=== PATIENT | female | born 1945 | race Caucasian/White ===

== ENCOUNTER 2021-12-31 18:36 | Inpatient (IN) | payer MEDICARE, MEDICAID ==
[2021-12-31] MEDS ORDERED: Magnesium 2 GM/50 ML BAG (IN WATER) ONE (18:54)
[2021-12-31] MEDS ORDERED: methylPREDNISolone Sod Succ/PF 125 MG/2 ML VIAL ONE (18:55)
[2021-12-31 19:24] LABS: #Lymphocytes 0.6 thou/uL (1.20-3.40); #Neutrophils 7.4 thou/uL (1.40-6.50); %Basophils 0.4 % (0.0-1.0); %Eosinophils 0.1 % (0.0-10.0); %Lymphocytes 6.9 % (21.0-51.0); %Monocytes 11.2 % (0.0-10.0); %Neutrophils 81.5 % (42.0-75.0); Mean Corpuscular HGB CONC 33.3 g/dL (32.0-36.0); Mean Corpuscular Hemoglobin 31.8 pg (27.0-31.0); Mean Corpuscular Volume 95.5 fL (78.0-98.0); Mean Platelet Volume 7.8 fL (7.4-10.4); Platelet Count 246 thou/uL (130-400); RBC Distribution Width 11.9 % (11.5-14.5); Red Blood Cell (RBC) Count 4.39 mill/uL (4.20-5.40); White Blood Cell (WBC) Count 9.1 thou/uL (4.8-10.8)
[2021-12-31 19:46] LABS: ALT (SGPT) 14 U/L (8-55); AST (SGOT) 23 U/L (5-34); Albumin 3.5 g/dL (3.4-4.8); Alkaline Phosphatase 31 U/L (40-110); Anion Gap 20 mmol/L (10-20); BUN (Urea Nitrogen) 72 mg/dL (9.8-20.1); Bilirubin, Total 1.1 mg/dL (0.2-1.2); CK (CPK) 92 U/L (29-168); Calc. Creatinine Clearance 0 mL/min (70-130); Calcium 8.7 mg/dL (7.8-10.44); Carbon Dioxide 21 mmol/L (23-31); Chloride 94 mmol/L (98-107); Glucose 159 mg/dL (83-110); Lipase 36 U/L (8-78); Magnesium 3.2 mg/dL (1.6-2.6); Potassium 3.2 mmol/L (3.5-5.1); Protein, Total 6.5 g/dL (5.8-8.1); Sodium 132 mmol/L (136-145)
[2021-12-31] MEDS ORDERED: cefTRIAXone\\ROCEPHIN 1 GM VIAL ONE (20:12)
[2021-12-31 20:16] LABS: Bilirubin Negative (Negative); Blood, Urine Negative (Negative); Clarity Turbid (Clear); Glucose, Urine (Dipstick) Normal (Negative); Ketone, Urine Negative (Negative); Leukocyte Negative Leu/uL (Negative); Nitrite Negative (Negative); Protein, Urine (Dipstick) 10 mg/dL (Neg-Trace); Specific Gravity, Urine 1.017 (1.002-1.036); Urobilinogen Normal mg/dL (Less than 2)
[2021-12-31 20:25] LABS: Amphetamine Not Detected (NotDetected); Barbiturates Screen Not Detected (NotDetected); Benzodiazepine Screen Not Detected (NotDetected); Cocaine Metabolite Screen Not Detected (NotDetected); Methadone Not Detected (NotDetected); Methamphetamine Not Detected (NotDetected); Opiate Screen Not Detected (NotDetected); Oxycodone Screen Not Detected (NotDetected); Phencyclidine (PCP) Not Detected (NotDetected); THC/Cannabinoid Screen Not Detected (NotDetected); Tricyclic Screen Not Detected (NotDetected)
[2021-12-31] MEDS ORDERED: Ondansetron ODT 4 MG TAB PO PRN (22:02)
[2021-12-31] MEDS ORDERED: Acetaminophen 500 MG TAB PO PRN (22:02)
[2021-12-31] MEDS ORDERED: Ondansetron PF 4 MG/2 ML Vial IVP PRN (22:02)
[2021-12-31 22:16] LABS: Lactic Acid 2.4 mmol/L (0.5-2.2)
[2022-01-01] MEDS: Sodium Chloride 0.9% 1,000 ML IV SCH ×3 (01:56→18:14)
[2022-01-01 02:34] VITALS: BMI 21.2
[2022-01-01 03:54] LABS: SARS-CoV-2 NAA Rapid Test Not Detected (NotDetected)
[2022-01-01 05:59] LABS: #Lymphocytes 0.5 thou/uL (1.20-3.40); #Monocytes 0.2 thou/uL (0.11-0.59); #Neutrophils 5.2 thou/uL (1.40-6.50); %Eosinophils 0.3 % (0.0-10.0); %Lymphocytes 8.2 % (21.0-51.0); %Monocytes 3.5 % (0.0-10.0); %Neutrophils 88.1 % (42.0-75.0); Hemoglobin 12.7 g/dL (12.0-16.0); Mean Corpuscular HGB CONC 32.4 g/dL (32.0-36.0); Mean Corpuscular Hemoglobin 33.1 pg (27.0-31.0); Mean Platelet Volume 8.5 fL (7.4-10.4); Platelet Count 205 thou/uL (130-400); RBC Distribution Width 12.2 % (11.5-14.5); Red Blood Cell (RBC) Count 3.83 mill/uL (4.20-5.40)
[2022-01-01 06:49] LABS: Chloride 102 mmol/L (98-107); Potassium 3.4 mmol/L (3.5-5.1); Sodium 135 mmol/L (136-145)
[2022-01-01 06:50] LABS: ALT (SGPT) 12 U/L (8-55); AST (SGOT) 25 U/L (5-34); Albumin 2.8 g/dL (3.4-4.8); Alkaline Phosphatase 41 U/L (40-110); Anion Gap 16 mmol/L (10-20); BUN (Urea Nitrogen) 62 mg/dL (9.8-20.1); Bilirubin, Total 0.3 mg/dL (0.2-1.2); Calc. Creatinine Clearance 21 mL/min (70-130); Calcium 8.1 mg/dL (7.8-10.44); Carbon Dioxide 20 mmol/L (23-31); Globulin 2.9 g/dL (2.4-3.5); Glucose 199 mg/dL (83-110); Phosphorus 2.7 mg/dL (2.3-4.7); Protein, Total 5.7 g/dL (5.8-8.1)
[2022-01-01] MEDS: Famotidine 20 MG TAB PO SCH (08:10)
[2022-01-01] MEDS: Budesonide 0.5 MG/2 ML NEB NEB SCH (19:22)
[2022-01-01] MEDS: methylPREDNISolone Sod Succ 40 MG VIAL IVP SCH (21:51)
[2022-01-02] MEDS: methylPREDNISolone Sod Succ 40 MG VIAL IVP SCH (06:20)
[2022-01-02] MEDS: Sodium Chloride 0.9% 1,000 ML IV SCH ×2 (06:30→20:47)
[2022-01-02] MEDS: Budesonide 0.5 MG/2 ML NEB NEB SCH ×2 (06:42→19:05)
[2022-01-02 09:20] LABS: #Lymphocytes 0.3 thou/uL (1.20-3.40); #Monocytes 0.1 thou/uL (0.11-0.59); #Neutrophils 7.9 thou/uL (1.40-6.50); %Basophils 0.1 % (0.0-1.0); %Eosinophils 0.1 % (0.0-10.0); %Monocytes 1.7 % (0.0-10.0); Hemoglobin 11.5 g/dL (12.0-16.0); Mean Corpuscular HGB CONC 33.1 g/dL (32.0-36.0); Mean Corpuscular Volume 99.6 fL (78.0-98.0); Mean Platelet Volume 8.6 fL (7.4-10.4); Platelet Count 189 thou/uL (130-400); RBC Distribution Width 12.1 % (11.5-14.5); Red Blood Cell (RBC) Count 3.49 mill/uL (4.20-5.40); White Blood Cell (WBC) Count 8.4 thou/uL (4.8-10.8)
[2022-01-02 09:29] LABS: Anion Gap 16 mmol/L (10-20); BUN (Urea Nitrogen) 38 mg/dL (9.8-20.1); Calc. Creatinine Clearance 29 mL/min (70-130); Carbon Dioxide 22 mmol/L (23-31); Chloride 108 mmol/L (98-107); Glucose 208 mg/dL (83-110); Potassium 3.6 mmol/L (3.5-5.1); Sodium 142 mmol/L (136-145)
[2022-01-02] MEDS: Famotidine 20 MG TAB PO SCH (09:48)
[2022-01-02] MEDS ORDERED: GUAIFENESIN SF SOLN 200 MG/10 ML UDCUP PO PRN (13:29)
[2022-01-02] MEDS ORDERED: traZODone HCl 50 MG TAB PO PRN (13:29)
[2022-01-02] MEDS: Atorvastatin Calcium 20 MG TAB PO SCH (20:52)
[2022-01-02] MEDS: Heparin 5,000 UNITS/ML VIAL SC SCH (20:52)
[2022-01-03] MEDS: Sodium Chloride 0.9% 1,000 ML IV SCH (03:18)
[2022-01-03 05:50] LABS: #Eosinphils 0.1 thou/uL (0.0-0.7); #Monocytes 0.9 thou/uL (0.11-0.59); #Neutrophils 8.1 thou/uL (1.40-6.50); %Basophils 0.3 % (0.0-1.0); %Eosinophils 0.6 % (0.0-10.0); %Lymphocytes 17.7 % (21.0-51.0); %Monocytes 8.2 % (0.0-10.0); %Neutrophils 73.3 % (42.0-75.0); Hemoglobin 11.3 g/dL (12.0-16.0); Mean Corpuscular HGB CONC 32.4 g/dL (32.0-36.0); Mean Corpuscular Hemoglobin 32.5 pg (27.0-31.0); Mean Platelet Volume 8.4 fL (7.4-10.4); Platelet Count 194 thou/uL (130-400); RBC Distribution Width 12.4 % (11.5-14.5)
[2022-01-03 06:10] LABS: Anion Gap 13 mmol/L (10-20); BUN (Urea Nitrogen) 27 mg/dL (9.8-20.1); Calc. Creatinine Clearance 36 mL/min (70-130); Calcium 8.2 mg/dL (7.8-10.44); Carbon Dioxide 24 mmol/L (23-31); Glucose 95 mg/dL (83-110); Potassium 3.8 mmol/L (3.5-5.1); Sodium 145 mmol/L (136-145)
[2022-01-03 06:18] LABS: Chloride 112 mmol/L (98-107)
[2022-01-03] MEDS: Budesonide 0.5 MG/2 ML NEB NEB SCH ×2 (06:30→19:06)
[2022-01-03] MEDS: Losartan 25 MG TAB PO SCH (09:05)
[2022-01-03] MEDS: Famotidine 20 MG TAB PO SCH (09:06)
[2022-01-03] MEDS: Hydrochlorothiazide 25 MG TAB PO SCH (09:06)
[2022-01-03] MEDS: methylPREDNISolone Sod Succ 40 MG VIAL IVP SCH (09:06)
[2022-01-03] MEDS: Heparin 5,000 UNITS/ML VIAL SC SCH ×2 (09:06→21:53)
[2022-01-03] MEDS ORDERED: Lorazepam 0.5 MG TAB PO PRN (15:31)
[2022-01-03] MEDS: guaiFENesin ER 600 MG TAB PO SCH (21:53)
[2022-01-03] MEDS: Benzonatate 100 MG CAP PO SCH (21:53)
[2022-01-03] MEDS: Atorvastatin Calcium 20 MG TAB PO SCH (21:53)
[2022-01-04] MEDS: Budesonide 0.5 MG/2 ML NEB NEB SCH ×2 (07:15→18:22)
[2022-01-04] MEDS: Famotidine 20 MG TAB PO SCH (10:25)
[2022-01-04] MEDS: Benzonatate 100 MG CAP PO SCH ×3 (10:25→23:41)
[2022-01-04] MEDS: Heparin 5,000 UNITS/ML VIAL SC SCH ×2 (10:26→20:07)
[2022-01-04] MEDS: Hydrochlorothiazide 25 MG TAB PO SCH (10:26)
[2022-01-04] MEDS: guaiFENesin ER 600 MG TAB PO SCH ×2 (10:26→20:16)
[2022-01-04] MEDS: Losartan 25 MG TAB PO SCH (10:26)
[2022-01-04] MEDS: methylPREDNISolone Sod Succ 40 MG VIAL IVP SCH (10:27)
[2022-01-04 16:23] LABS: #Eosinphils 0.2 thou/uL (0.0-0.7); #Lymphocytes 1.4 thou/uL (1.20-3.40); #Monocytes 0.6 thou/uL (0.11-0.59); #Neutrophils 4.9 thou/uL (1.40-6.50); %Basophils 0.3 % (0.0-1.0); %Eosinophils 2.5 % (0.0-10.0); %Lymphocytes 19.5 % (21.0-51.0); %Monocytes 8.6 % (0.0-10.0); %Neutrophils 69.1 % (42.0-75.0); Hemoglobin 12.2 g/dL (12.0-16.0); Mean Corpuscular HGB CONC 32.2 g/dL (32.0-36.0); Mean Corpuscular Hemoglobin 32.1 pg (27.0-31.0); Mean Corpuscular Volume 99.6 fL (78.0-98.0); Mean Platelet Volume 8.2 fL (7.4-10.4); Platelet Count 173 thou/uL (130-400); RBC Distribution Width 12.3 % (11.5-14.5); Red Blood Cell (RBC) Count 3.81 mill/uL (4.20-5.40); White Blood Cell (WBC) Count 7.1 thou/uL (4.8-10.8)
[2022-01-04 17:01] LABS: Anion Gap 12 mmol/L (10-20); BUN (Urea Nitrogen) 19 mg/dL (9.8-20.1); Calc. Creatinine Clearance 41 mL/min (70-130); Carbon Dioxide 26 mmol/L (23-31); Chloride 104 mmol/L (98-107); Glucose 107 mg/dL (83-110); Potassium 3.2 mmol/L (3.5-5.1); Sodium 139 mmol/L (136-145)
[2022-01-04] MEDS ORDERED: LORAZEPAM PO PRN (17:10)
[2022-01-04] MEDS: SIMVASTATIN PO SCH (20:08)
[2022-01-04] MEDS ORDERED: guaiFENesin ER 600 MG TAB ONE (20:11)
[2022-01-04] MEDS ORDERED: Benzonatate 100 MG CAP ONE (20:11)
[2022-01-05] MEDS: Budesonide 0.5 MG/2 ML NEB NEB SCH ×2 (07:39→19:10)
[2022-01-05] MEDS: PREMARIN PO SCH (09:36)
[2022-01-05] MEDS: LOSARTAN PO SCH (09:37)
[2022-01-05] MEDS: HYDROCHLOROTHIAZIDE PO SCH (09:39)
[2022-01-05] MEDS: Benzonatate 100 MG CAP PO SCH ×3 (09:44→20:17)
[2022-01-05] MEDS: guaiFENesin ER 600 MG TAB PO SCH ×2 (09:44→20:16)
[2022-01-05] MEDS: Famotidine 20 MG TAB PO SCH (09:45)
[2022-01-05] MEDS: methylPREDNISolone Sod Succ 40 MG VIAL IVP SCH (09:45)
[2022-01-05] MEDS: Heparin 5,000 UNITS/ML VIAL SC SCH ×2 (09:45→20:17)
[2022-01-05] MEDS ORDERED: Artificial Tear Sol 15 ML BOT EA EYE PRN (11:17)
[2022-01-05] MEDS ORDERED: Moisturizing Cream (Eucerin) 113 GM JAR TOP PRN (11:17)
[2022-01-05] MEDS ORDERED: Calcium Carbonate 500 MG ChewTAB PO PRN (11:17)
[2022-01-05] MEDS ORDERED: Cepastat Lozenges 1 LOZ PO PRN (11:17)
[2022-01-05] MEDS ORDERED: hydrALAZINE 20 MG/ML VIAL SLOW IVP PRN (11:17)
[2022-01-05] MEDS ORDERED: Loratadine 10 MG TAB PO PRN (11:17)
[2022-01-05] MEDS ORDERED: Loperamide HCl 2 MG CAP PO PRN (11:17)
[2022-01-05] MEDS ORDERED: Senokot S 8.6-50 MG TAB PO PRN (11:17)
[2022-01-05] MEDS ORDERED: Acetaminophen 500 MG TAB PO PRN (11:18)
[2022-01-05] MEDS: SIMVASTATIN PO SCH (20:17)
[2022-01-06] MEDS: Budesonide 0.5 MG/2 ML NEB NEB SCH ×2 (06:57→18:30)
[2022-01-06] MEDS: guaiFENesin ER 600 MG TAB PO SCH ×2 (09:23→21:13)
[2022-01-06] MEDS: Famotidine 20 MG TAB PO SCH (09:23)
[2022-01-06] MEDS: Benzonatate 100 MG CAP PO SCH ×3 (09:23→21:13)
[2022-01-06] MEDS: HYDROCHLOROTHIAZIDE PO SCH (09:26)
[2022-01-06] MEDS: PREMARIN PO SCH (09:26)
[2022-01-06] MEDS: LOSARTAN PO SCH (09:27)
[2022-01-06] MEDS: Heparin 5,000 UNITS/ML VIAL SC SCH ×2 (16:12→21:10)
[2022-01-06] MEDS: SIMVASTATIN PO SCH (21:10)
[2022-01-07 05:48] LABS: #Eosinphils 0.3 thou/uL (0.0-0.7); #Lymphocytes 2.1 thou/uL (1.20-3.40); #Monocytes 0.8 thou/uL (0.11-0.59); #Neutrophils 5.3 thou/uL (1.40-6.50); %Basophils 0.4 % (0.0-1.0); %Eosinophils 3.1 % (0.0-10.0); %Monocytes 9.4 % (0.0-10.0); %Neutrophils 62.1 % (42.0-75.0); Hemoglobin 12.1 g/dL (12.0-16.0); Mean Corpuscular HGB CONC 32.6 g/dL (32.0-36.0); Mean Corpuscular Hemoglobin 32.7 pg (27.0-31.0); Mean Platelet Volume 8.3 fL (7.4-10.4); Platelet Count 177 thou/uL (130-400); RBC Distribution Width 12.5 % (11.5-14.5); Red Blood Cell (RBC) Count 3.69 mill/uL (4.20-5.40); White Blood Cell (WBC) Count 8.5 thou/uL (4.8-10.8)
[2022-01-07 06:19] LABS: Anion Gap 12 mmol/L (10-20); BUN (Urea Nitrogen) 19 mg/dL (9.8-20.1); Calc. Creatinine Clearance 39 mL/min (70-130); Calcium 9.3 mg/dL (7.8-10.44); Carbon Dioxide 31 mmol/L (23-31); Chloride 101 mmol/L (98-107); Glucose 107 mg/dL (83-110); Magnesium 1.6 mg/dL (1.6-2.6); Phosphorus 3.1 mg/dL (2.3-4.7); Potassium 3.7 mmol/L (3.5-5.1); Sodium 140 mmol/L (136-145)
[2022-01-07] MEDS: Budesonide 0.5 MG/2 ML NEB NEB SCH (07:36)
[2022-01-07] MEDS: Famotidine 20 MG TAB PO SCH (09:14)
[2022-01-07] MEDS: guaiFENesin ER 600 MG TAB PO SCH (09:14)
[2022-01-07] MEDS: Benzonatate 100 MG CAP PO SCH ×2 (09:14→15:33)
[2022-01-07] MEDS: PREMARIN PO SCH (09:15)
[2022-01-07] MEDS: HYDROCHLOROTHIAZIDE PO SCH (09:16)
[2022-01-07] MEDS: LOSARTAN PO SCH (09:16)
[2022-01-07] MEDS: Heparin 5,000 UNITS/ML VIAL SC SCH (09:18)
[2022-01-07 17:11] VITALS: BP 115/83; TEMP 96.3
== END 2022-01-07 18:20 | disposition home or self-care (01) | DRG 922 ==
LOC: ERS 18:36 → SURG B 20:34
PROVIDERS: ADMIT Internal Medicine; ATTEND Internal Medicine
DX: T67.5XXA Heat exhaustion, unspecified, initial encounter (principal); G93.41 Metabolic encephalopathy; J96.01 Acute respiratory failure with hypoxia; J44.1 Chronic obstructive pulmonary disease with (acute) exacerbation; N17.9 Acute kidney failure, unspecified; Z20.822 Contact with and (suspected) exposure to COVID-19; E86.0 Dehydration; E87.6 Hypokalemia; F17.210 Nicotine dependence, cigarettes, uncomplicated; I10 Essential (primary) hypertension; E78.5 Hyperlipidemia, unspecified; X30.XXXA Exposure to excessive natural heat, initial encounter; Z79.899 Other long term (current) drug therapy
CPT/HCPCS: 36415; 70450; 71046; 80048; 80053; 80306; 81003; 82550; 83605; 83690; 83735; 83880; 84100; 84443; 84484; 85025; 87040; 87086; 94640; 96365; 96367; 96375; J0696; J0744; J2920; J2930; J3475; J7050; J7620; J7626; U0002; U0003; U0005

== ENCOUNTER 2022-06-18 12:47 | Outpatient (CLI) | payer MEDICARE, MEDICAID | END 2022-06-18 12:48 | disposition home or self-care (01) | LOC: RAD 12:47 | PROVIDERS: ATTEND Family Medicine | DX: Z45.2 Encounter for adjustment and management of vascular access device (principal) | CPT/HCPCS: 36569; C1751 ==